=== PATIENT | male | born 1970 | race Caucasian/White ===

== ENCOUNTER 2019-12-10 07:14 | Day surgery (SDC) | payer BC ==
[~2019-12-10 07:14] MED LIST: Lactated Ringers 1,000 ML IV SCH; cefOXitin 2 GM in Premix Bag 1 BAG IV ONE
--- NOTE | 2019-12-10 07:45 | PCM.PREANE ---
Preanesthetic Assessment - Anesthesia/Transfusion/Family Hx Anesthesia History: Prior Anesthesia Without Reaction Family History of Anesthesia Reaction: No Transfusion History: No Prior Transfusion(s) Intubation History: Unknown - Review of Systems General: No Symptoms Pulmonary: No Symptoms Cardiovascular: No Symptoms Gastrointestinal: No Symptoms, Other (screening colonoscopy) Neurological: No Symptoms Other: Reports: None - Physical Assessment Height: 6 ft 2 in Weight: 140.614 kg ASA Class: 3 Mental Status: Alert & Oriented x3 Airway Class: Mallampati = 2 Dentition: Reports: Normal Dentition Thyro-Mental Finger Breadths: 3 Mouth Opening Finger Breadths: 2 ROM/Head Extension: Full Lungs: Clear to Auscultation, Normal Respiratory Effort Cardiovascular: Regular Rate, Regular Rhythm - Allergies Allergies/Adverse Reactions: Allergies Allergy/AdvReac Type Severity Reaction Status Date / Time No Known Allergies Allergy Verified 12/08/19 09:07 - Blood Blood Available: No - Anesthesia Plan Pre-Op Medication Ordered: None - Acknowledgements Anesthesia Type Planned: MAC Pt an Appropriate Candidate for the Planned Anesthesia: Yes Alternatives and Risks of Anesthesia Discussed w Pt/Guardian: Yes Pt/Guardian Understands and Agrees with Anesthesia Plan: Yes PreAnesthesia Questionnaire HEENT History: Reports: Other (See Below) Other HEENT History: wears glasses, hx fx nose Cardiovascular History: Reports: High Cholesterol Respiratory History: Reports: Asthma, COPD, SOB (he can walk easily 2 blocks or two flights of stairs, uses inhalers twice a week), Other (See Below) Other Respiratory History: childhood asthma, "starting of COPD" Gastrointestinal History: Reports: GERD Genitourinary History: Reports: None Musculoskeletal History: Reports: Fracture, Other (See Below) Other Musculoskeletal History: bulging lumbar discs, hx fx collarbone, arm, wrist and rt ankle Neurological History: Reports: None Psychiatric History: Reports: Anxiety, Depression Endocrine/Metabolic History: Reports: Obesity/BMI 30+ (BMI 39.8) Hematologic History: Reports: None Immunologic History: Reports: None Oncologic (Cancer) History: Reports: None Dermatologic History: Reports: Eczema - Past Surgical History Head Surgeries/Procedures: Reports: None HEENT Surgical History: Reports: Eye Surgery Cardiovascular Surgical History: Reports: None Respiratory Surgical History: Reports: None GI Surgical History: Reports: Appendectomy Male Surgical History: Reports: None Endocrine Surgical History: Reports: None Neurological Surgical History: Reports: None Musculoskeletal Surgical History: Reports: Hip Replacement, Other (See Below) Other Musculoskeletal Surgeries/Procedures:: 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) , surgery for crushed rt ankle, surgery for left hand injury Oncologic Surgical History: Reports: None Dermatological Surgical History: Reports: None - SUBSTANCE USE Smoking Status *Q: Former Smoker (quit 4 years ago) Tobacco Use Within Last Twelve Months: No - HOME MEDS Home Medications: Home Meds Albuterol [Proair HFA] 2 puff INH ASDIRECTED PRN 12/08/19 [History] Escitalopram Oxalate 20 mg PO DAILY 12/08/19 [History] Meloxicam 15 mg PO DAILY 12/08/19 [History] Montelukast Sodium 10 mg PO BEDTIME 12/08/19 [History] Omeprazole 20 mg PO DAILY 12/08/19 [History] Simvastatin 20 mg PO BEDTIME 12/08/19 [History] - CURRENT (IN HOUSE) MEDS Current Meds: Current Medications Lactated Ringer's (Ringers, Lactated) 1,000 mls @ 125 mls/hr IV ASDIRECTED KAREN Discontinued Medications Cefoxitin Sodium 2 gm/ Premix 50 mls @ 100 mls/hr IV ONETIME ONE Stop: 12/10/19 07:29
[2019-12-10] MEDS ORDERED: Propofol 200 MG/20 ML SDV ONE (08:36)
[2019-12-10] MEDS ORDERED: Midazolam 1 MG/ML 2 ML SDV ONE (08:36)
[2019-12-10] MEDS ORDERED: Lidocaine 2% 5 ML SDV ONE (08:37)
--- NOTE | 2019-12-10 09:54 | PCM.OPNOTE ---
- General Post-Op/Procedure Note Date of Surgery/Procedure: 12/10/19 Operative Procedure(s): Colonoscopy with cold sigmoid polypectomy 2 Pre Op Diagnosis: Desire for colorectal cancer screening Post-Op Diagnosis: Mid and distal sigmoid polyps. Sigmoid diverticulosis. Anesthesia Technique: MAC (ASA III) Primary Surgeon: Kota Stanley Condition: Good Free Text/Narrative:: DICTATION [id number] CPT CODE 31700
[2019-12-10] MEDS ORDERED: Lactated Ringers 1,000 ML IV SCH (10:00)
--- NOTE | 2019-12-10 10:11 | PCM.POSTAN ---
POST ANESTHESIA ASSESSMENT - MENTAL STATUS Mental Status: Alert, Oriented - VITAL SIGNS Vital Signs: Last Vital Signs Temp 37.1 C 12/10/19 09:51 Pulse 69 12/10/19 10:02 Resp 18 12/10/19 10:02 BP 107/52 L 12/10/19 10:02 Pulse Ox 93 L 12/10/19 10:02 - RESPIRATORY Respiratory Status: Respiratory Rate WNL, Airway Patent, O2 Saturation Stable - CARDIOVASCULAR CV Status: Pulse Rate WNL, Blood Pressure Stable - GASTROINTESTINAL GI Status: No Symptoms - PAIN Pain Score: 0 - POST OP HYDRATION Hydration Status: Adequate & Stable - OBSERVATIONS Free Text/Narrative:: No anesthesia problems
--- NOTE | 2019-12-10 10:38 | PCM48HPAN ---
Post Anesthesia Note - EVALUATION WITHIN 48HRS OF ANESTHETIC Vital Signs in Normal Range: Yes Patient Participated in Evaluation: Yes Respiratory Function Stable: Yes Airway Patent: Yes Cardiovascular Function Stable: Yes Hydration Status Stable: Yes Pain Control Satisfactory: Yes Nausea and Vomiting Control Satisfactory: Yes Mental Status Recovered: Yes Vital Signs: Last Vital Signs Temp 37.1 C 12/10/19 09:51 Pulse 69 12/10/19 10:02 Resp 18 12/10/19 10:02 BP 107/52 L 12/10/19 10:02 Pulse Ox 93 L 12/10/19 10:02 - COMMENTS/OBSERVATIONS Free Text/Narrative:: No anesthesia problems
--- NOTE | 2019-12-10 18:37 | OR ---
SURGEON: Kota Stanley M.D. DATE OF PROCEDURE: 12/10/2019 OPERATION PERFORMED: Colonoscopy with sigmoid colon polypectomy x2. PRIMARY SURGEON: Kota Stanley M.D. ANESTHESIA: MAC. ASA CLASSIFICATION: III. PREOPERATIVE DIAGNOSIS: Desire for colorectal cancer screening. POSTOPERATIVE DIAGNOSES: 1. Mid and distal sigmoid polyps. 2. Mild sigmoid diverticulosis. DESCRIPTION OF PROCEDURE: The patient was taken to the endoscopy room and positioned on the endoscopy table in the left lateral decubitus position. Time-out was called for appropriate identification of the patient and procedure. Monitored anesthesia care was provided. The colonoscope was inserted into the rectum and advanced with minimal difficulty to the cecum, where the colonoscope was retroflexed to visualize the ascending colon from below. The colonoscope was then straightened and slowly withdrawn. The cecum, ascending colon, hepatic flexure, transverse colon, splenic flexure, and descending colon showed no tumors, polyps, diverticula, or angiodysplastic changes. There was no evidence of inflammatory bowel disease. The sigmoid colon demonstrated a few scattered diverticula. Two small polyps were encountered in the sigmoid colon. One was in the distal sigmoid and the other in the mid sigmoid. These were removed separately with the cold biopsy forceps and sent for separate histologic analysis. The colonoscope was then withdrawn to the rectum and retroflexed to visualize the anal orifice from above. No tumors or polyps were encountered in the distal rectum and there were no acute hemorrhoidal changes. The colonoscope was then straightened, the rectum aspirated, and the colonoscope removed. The patient tolerated the procedure well and was taken to recovery room in stable condition. PARRISH / MANOHAR /[id number]
== END 2019-12-10 11:10 | disposition home or self-care (01) ==
LOC: MW.SDS 07:14
PROVIDERS: ATTEND Surgery
DX: Z12.11 Encounter for screening for malignant neoplasm of colon (principal); K63.5 Polyp of colon; K57.30 Diverticulosis of large intestine without perforation or abscess without bleeding; E78.00 Pure hypercholesterolemia, unspecified; J44.9 Chronic obstructive pulmonary disease, unspecified; K21.9 Gastro-esophageal reflux disease without esophagitis; F41.9 Anxiety disorder, unspecified; E78.5 Hyperlipidemia, unspecified; F32.9 Major depressive disorder, single episode, unspecified; E66.9 Obesity, unspecified; Z68.39 Body mass index [BMI] 39.0-39.9, adult; Z87.891 Personal history of nicotine dependence; Z79.899 Other long term (current) drug therapy
CPT/HCPCS: 45380; J0694; J2001; J2250; J2704; J7120; 00812; 88305

== ENCOUNTER 2021-01-26 10:48 | Observation (INO) | payer BC ==
[2021-01-26] MEDS ORDERED: Sodium Chloride 0.9% 1,000 ML IV ONE (10:55)
[2021-01-26] MEDS ORDERED: Aspirin 81 MG Tab.Chew PO ONE (10:55)
--- NOTE | 2021-01-26 11:01 | EDM.PDOC ---
ED HPI GENERAL MEDICAL PROBLEM - General Chief Complaint: Chest Pain Stated Complaint: CP/SOB Time Seen by Provider: 01/26/21 10:54 Source of Information: Reports: Patient History Limitations: Reports: No Limitations - History of Present Illness INITIAL COMMENTS - FREE TEXT/NARRATIVE: HISTORY AND PHYSICAL: History of present illness: Patient is a 50-year-old male who presents to the emergency room with complaints of chest pain, shortness of breath and left sided chest wall "cramping" since 6 AM this morning. Patient states that rest makes the pain feel improved, physical activity or exertion exacerbates the discomfort. He states he feels dizzy and has had a nonproductive cough. Currently rates his pain at a 4/10. He has been an intermittent smoker over the past 20 years. Father has had multiple MIs in the past, of other causes. States 2 weeks ago he flew from [place] to [place]. No other family members or close contacts have been ill. Patient denies any fever, chills, headache, change in vision, syncope or near syncope. Denies any back pain, abdominal pain, nausea, vomiting, diarrhea, constipation or dysuria. Has not noted any blood in urine or stool. Patient has been eating and drinking appropriately. Review of systems: As per history of present illness and below otherwise all systems reviewed and negative. Past medical history: As per history of present illness and as reviewed below otherwise noncontributory. Surgical history: As per history of present illness and as reviewed below otherwise noncontributory. Social history: See social history for further information Family history: As per history of present illness and as reviewed below otherwise noncontributory. Physical exam: General: Well developed and well nourished 50-year-old male. Alert and orientated x 3. Nontoxic in appearance and in no acute distress. Vital signs are stable and have been reviewed by me. Nursing notes were reviewed. HEENT: Atraumatic, normocephalic, pupils equal and reactive bilaterally, negative for conjunctival pallor or scleral icterus, mucous membranes moist, TMs normal bilaterally, throat clear, neck supple, nontender, trachea midline. No d rooling or trismus noted. No meningeal signs. No hot potato voice noted. Lungs: Clear to auscultation bilaterally. No wheezes, rales, or rhonchi. Chest nontender. Normal work of breathing, no accessory muscles used. Heart: S1S2, regular rate and rhythm without overt murmur, gallops, or rubs. No JVD. No peripheral edema Abdomen: Soft, obese, nontender. Normoactive bowel sounds. Negative for masses or costovertebral tenderness. Skin: Intact, warm, dry. No lesions or rashes noted. Hematologic: No petechiae or purpra. Mucosa appropriate color and normal nail bed color and refill. Extremities: Atraumatic, moves all extremities per self without difficulty or deficits, negative for cords or calf pain. Neurovascular unremarkable. Neuro: Awake, alert, oriented. Cranial nerves II through XII unremarkable. Cerebellum unremarkable. Motor and sensory unremarkable throughout. Exam nonfocal. Psychiatric: Mood and affect are appropriate. Normal thought process. Answering questions appropriately. Notes: *This patient was seen and evaluated during the 2019 SARS-CoV-2 novel coronavirus pandemic period. Community viral transmission is ongoing at time of this encounter and the emergency department is operating under pandemic response procedures. Patient is a 50-year-old male who presents to the emergency room with complaints of chest pain with a cramping sensation to his left rib cage, dizziness and generally feeling unwell since 6 AM this morning. Feels that symptoms are exacerbated with physical activity and alleviated with rest. Patient does have risk factors which include age, weight, elevated cholesterol (not taking his prescribed medication), family history, and +20 year smoker. We will do a full cardiac work-up, provide aspirin and nitro. Patient did not have any relief with the nitroglycerin. Initial lab work is unremarkable. Chest x-ray is unremarkable. Chest pain has resolved after the morphine and fluids, but continues to feel dizzy and generally unwell. Will repeat a second troponin. Second troponin is unremarkable. I have talked with the patient about today's findings, in addition to providing specific details for plan of care. Reassessment at the time of disposition demonstrates that the patient is in no acute distress. He states he continues to feel dizzy, there were some changes in his orthostatics although that could be due to the medications he received. We will keep him for further care and evaluation for the chest pain. Dr. Guerrero is agreeable to plan of care and will keep patient on telemetry for further management Diagnostics: CBC, CMP, EKG, troponin, chest x-ray, COVID-19/influenza Therapeutics: NS at 125 mL/HR, aspirin, nitro x 3 Impression: Chest pain Dizziness Plan: Observation admission [facility] with telemetry Definitive disposition and diagnosis as appropriate pending reevaluation and review of above. Onset: Today Onset Date: 01/26/21 Onset Time: 06:00 Duration: Hour(s): Location: Reports: Chest Left Chest Pain Score (Numeric/FACES): 4 - Related Data Allergies Allergy/AdvReac Type Severity Reaction Status Date / Time No Known Allergies Allergy Verified 01/26/21 11:02 Home Meds: Home Meds Albuterol [Proair HFA] 2 puff INH ASDIRECTED PRN 12/08/19 [History] Escitalopram Oxalate 20 mg PO DAILY 12/08/19 [History] Meloxicam 15 mg PO DAILY 12/08/19 [History] Montelukast Sodium 10 mg PO BEDTIME 12/08/19 [History] Omeprazole 20 mg PO DAILY 12/08/19 [History] Simvastatin 20 mg PO BEDTIME 12/08/19 [History] Past Medical History HEENT History: Reports: Other (See Below) Other HEENT History: wears glasses, hx fx nose Cardiovascular History: Reports: High Cholesterol Respiratory History: Reports: Asthma, COPD, SOB (he can walk easily 2 blocks or two flights of stairs, uses inhalers twice a week), Other (See Below) Other Respiratory History: childhood asthma, "starting of COPD" Gastrointestinal History: Reports: GERD Genitourinary History: Reports: None Musculoskeletal History: Reports: Fracture, Other (See Below) Other Musculoskeletal History: bulging lumbar discs, hx fx collarbone, arm, wrist and rt ankle Neurological History: Reports: None Psychiatric History: Reports: Anxiety, Depression Endocrine/Metabolic History: Reports: Obesity/BMI 30+ (BMI 39.8) Hematologic History: Reports: None Immunologic History: Reports: None Oncologic (Cancer) History: Reports: None Dermatologic History: Reports: Eczema - Past Surgical History Head Surgeries/Procedures: Reports: None HEENT Surgical History: Reports: Eye Surgery Cardiovascular Surgical History: Reports: None Respiratory Surgical History: Reports: None GI Surgical History: Reports: Appendectomy Male Surgical History: Reports: None Endocrine Surgical History: Reports: None Neurological Surgical History: Reports: None Musculoskeletal Surgical History: Reports: Hip Replacement, Other (See Below) Other Musculoskeletal Surgeries/Procedures:: 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 ED EXAM, GENERAL - Physical Exam Exam: See Below (See dictation) Course - Vital Signs Last Recorded V/S: Last Vital Signs Temp 98 F 01/26/21 11:03 Pulse 81 01/26/21 13:22 Resp 20 01/26/21 11:03 BP 125/56 L 01/26/21 13:22 Pulse Ox 93 L 01/26/21 13:22 Orthostatic Blood Pressure [ 115/64 Standing] Orthostatic Blood Pressure [ 123/78 Sitting] Orthostatic Blood Pressure [ 144/75 Supine] - Orders/Labs/Meds Orders: Active Orders 24 hr Category Date Time Status Admission Status [Patient Status] [ADT] Stat ADT 01/26/21 14:11 Active EKG Documentation Completion [RC] STAT Care 01/26/21 10:55 Active Orthostatic Vital Signs [RC] ASDIRECTED Care 01/26/21 13:08 Active Sodium Chloride 0.9% [Normal Saline] 1,000 ml Med 01/26/21 10:55 Active IV STAT Medication Orders Sodium Chloride (Normal Saline) 1,000 mls @ 125 mls/hr IV STAT ONE Stop: 01/26/21 18:54 Last Admin: 01/26/21 11:09 Dose: 125 mls/hr Documented by: [id number] Labs: Laboratory Tests 01/26/21 01/26/21 01/26/21 Range/Units 11:01 11:01 11:01 WBC 6.64 (4.0-11.0) K/uL RBC 5.25 (4.50-5.90) M/uL Hgb 16.4 (13.0-17.0) g/dL Hct 48.7 (38.0-50.0) % MCV 92.8 (80.0-98.0) fL MCH 31.2 (27.0-32.0) pg MCHC 33.7 (31.0-37.0) g/dL RDW Std Deviation 49.3 (28.0-62.0) fl RDW Coeff of Benita 15 (11.0-15.0) % Plt Count 322 (150-400) K/uL MPV 10.30 (7.40-12.00) fL Neut % (Auto) 49.9 (48.0-80.0) % Lymph % (Auto) 35.2 (16.0-40.0) % Billings % (Auto) 10.4 (0.0-15.0) % Eos % (Auto) 3.9 (0.0-7.0) % Baso % (Auto) 0.6 (0.0-1.5) % Neut # (Auto) 3.3 (1.4-5.7) K/uL Lymph # (Auto) 2.3 (0.6-2.4) K/uL Billings # (Auto) 0.7 (0.0-0.8) K/uL Eos # (Auto) 0.3 (0.0-0.7) K/uL Baso # (Auto) 0.0 (0.0-0.1) K/uL Nucleated RBC % 0.0 /100WBC Nucleated RBCs # 0 K/uL D-Dimer, Quantitative 0.43 (0.0-0.50) mg/L FEU Sodium 138 (136-148) mmol/L Potassium 4.2 (3.5-5.1) mmol/L Chloride 101 (98-107) mmol/L Carbon Dioxide 27.7 (21.0-32.0) mmol/L BUN 9 (7.0-18.0) mg/dL Creatinine 1.3 (0.8-1.3) mg/dL Est Cr Clr Drug Dosing 78.16 mL/min Estimated GFR (MDRD) 58.2 ml/min Glucose 112 H (74-106) mg/dL Calcium 9.2 (8.5-10.1) mg/dL Total Bilirubin 0.6 (0.2-1.0) mg/dL AST 64 H (15-37) IU/L ALT 109 H (14-63) IU/L Alkaline Phosphatase 94 (46-116) U/L Troponin I < 0.050 (0.000-0.056) ng/mL Total Protein 7.8 (6.4-8.2) g/dL Albumin 3.8 (3.4-5.0) g/dL Globulin 4.0 (2.6-4.0) g/dL Albumin/Globulin Ratio 0.9 (0.9-1.6) TSH 3rd Generation (0.36-3.74) uIU/mL Influenza Type A RNA (NEGATIVE) Influenza Type B RNA (NEGATIVE) SARS-CoV-2 RNA (VI) (NEGATIVE) 01/26/21 01/26/21 01/26/21 Range/Units 11:01 12:55 14:13 WBC (4.0-11.0) K/uL RBC (4.50-5.90) M/uL Hgb (13.0-17.0) g/dL Hct (38.0-50.0) % MCV (80.0-98.0) fL MCH (27.0-32.0) pg MCHC (31.0-37.0) g/dL RDW Std Deviation (28.0-62.0) fl RDW Coeff of Benita (11.0-15.0) % Plt Count (150-400) K/uL MPV (7.40-12.00) fL Neut % (Auto) (48.0-80.0) % Lymph % (Auto) (16.0-40.0) % Billings % (Auto) (0.0-15.0) % Eos % (Auto) (0.0-7.0) % Baso % (Auto) (0.0-1.5) % Neut # (Auto) (1.4-5.7) K/uL Lymph # (Auto) (0.6-2.4) K/uL Billings # (Auto) (0.0-0.8) K/uL Eos # (Auto) (0.0-0.7) K/uL Baso # (Auto) (0.0-0.1) K/uL Nucleated RBC % /100WBC Nucleated RBCs # K/uL D-Dimer, Quantitative (0.0-0.50) mg/L FEU Sodium (136-148) mmol/L Potassium (3.5-5.1) mmol/L Chloride (98-107) mmol/L Carbon Dioxide (21.0-32.0) mmol/L BUN (7.0-18.0) mg/dL Creatinine (0.8-1.3) mg/dL Est Cr Clr Drug Dosing mL/min Estimated GFR (MDRD) ml/min Glucose (74-106) mg/dL Calcium (8.5-10.1) mg/dL Total Bilirubin (0.2-1.0) mg/dL AST (15-37) IU/L ALT (14-63) IU/L Alkaline Phosphatase (46-116) U/L Troponin I < 0.050 (0.000-0.056) ng/mL Total Protein (6.4-8.2) g/dL Albumin (3.4-5.0) g/dL Globulin (2.6-4.0) g/dL Albumin/Globulin Ratio (0.9-1.6) TSH 3rd Generation 1.30 (0.36-3.74) uIU/mL Influenza Type A RNA NEGATIVE (NEGATIVE) Influenza Type B RNA NEGATIVE (NEGATIVE) SARS-CoV-2 RNA (VI) NEGATIVE (NEGATIVE) Meds: Medications Generic Name Dose Route Start Last Admin Trade Name Keshia PRN Reason Stop Dose Admin Sodium Chloride 1,000 mls @ 125 mls/hr 01/26/21 10:55 01/26/21 11:09 Normal Saline IV 01/26/21 18:54 125 mls/hr STAT ONE Administration Discontinued Medications Generic Name Dose Route Start Last Admin Trade Name Keshia PRN Reason Stop Dose Admin Aspirin 324 mg 01/26/21 10:55 01/26/21 11:09 Aspirin 81 Mg Tab.Chew PO 01/26/21 10:56 324 mg ONETIME ONE Administration Morphine Sulfate 4 mg 01/26/21 11:37 01/26/21 12:02 Morphine 4 Mg/Ml Syringe IVPUSH 01/26/21 11:38 4 mg ONETIME ONE Administration Nitroglycerin 0.4 mg 01/26/21 10:55 01/26/21 11:32 Nitroglycerin 0.4 Mg Tab.Sl SL 0.4 mg Q5M PRN Administration Chest Pain Ondansetron HCl 4 mg 01/26/21 11:37 01/26/21 12:02 Ondansetron 4 Mg/2 Ml Sdv IVPUSH 01/26/21 11:38 4 mg ONETIME ONE Administration Departure - Departure Time of Disposition: 14:58 Disposition: Refer to Observation Clinical Impression: Chest pain, rule out acute myocardial infarction, Dizziness Referrals: PCP,Unknown [Ordering Only Provider] - Forms: ED Department Discharge Sepsis Event Note (ED) - Focused Exam Vital Signs: Vital Signs Temp Pulse Resp BP BP Pulse Ox 01/26/21 13:22 81 125/56 L 93 L 01/26/21 12:52 75 119/54 L 93 L 01/26/21 11:53 91 115/64 91 L 01/26/21 11:32 140/77 01/26/21 11:21 160/70 H 01/26/21 11:10 168/78 H 01/26/21 11:03 98 F 83 20 168/70 H 94 L - My Orders Last 24 Hours: My Active Orders 01/26/21 10:55 EKG Documentation Completion [RC] STAT Sodium Chloride 0.9% [Normal Saline] 1,000 ml IV STAT 01/26/21 13:08 Orthostatic Vital Signs [RC] ASDIRECTED 01/26/21 14:11 Admission Status [Patient Status] [ADT] Stat - Assessment/Plan Last 24 Hours: My Active Orders 01/26/21 10:55 EKG Documentation Completion [RC] STAT Sodium Chloride 0.9% [Normal Saline] 1,000 ml IV STAT 01/26/21 13:08 Orthostatic Vital Signs [RC] ASDIRECTED 01/26/21 14:11 Admission Status [Patient Status] [ADT] Stat
--- NOTE | 2021-01-26 11:08 | PCM.EKG ---
#1 Interpretation EKG Date: 01/26/21 Time: 10:52 Rhythm: NSR Rate (Beats/Min): 79 ST-T: Normal
[2021-01-26] MEDS: Nitroglycerin 0.4 MG Tab.SL SL PRN ×3 (11:10→11:32)
[2021-01-26] MEDS ORDERED: Ondansetron 4 MG/2 ML SDV IVPUSH ONE (11:37)
[2021-01-26] MEDS ORDERED: Morphine 4 MG/ML Syringe IVPUSH ONE (11:37)
[2021-01-26 11:41] LABS: BLOOD UREA NITROGEN,BUN 9 mg/dL (7.0-18.0); CARBON DIOXIDE,CO2 27.7 mmol/L (21.0-32.0); CHLORIDE,CL 101 mmol/L (98-107); GLUCOSE RANDOM 112 mg/dL (74-106); POTASSIUM,K 4.2 mmol/L (3.5-5.1); SODIUM,NA 138 mmol/L (136-148)
--- NOTE | 2021-01-26 12:51 | CR ---
INDICATION: Chest pain TECHNIQUE: Chest 1 view COMPARISON: None FINDINGS: Cardiovascular and mediastinum: Heart size and vasculature are normal in caliber and appearance. Lungs and pleural spaces: Lungs are clear. No sign of infiltrate or mass. No sign of pleural effusion. No pneumothorax. Bones and soft tissues: No significant findings. IMPRESSION: No acute or significant findings. Dictated by Shaggy Howell MD @ 01/26/2021 12:49:[address] Shaggy Howell @ Jan 26 2021 12:49PM
[2021-01-26 13:36] LABS: CORONAVIRUS COVID-19 NAA NEGATIVE (NEGATIVE); INFLUENZA A NAA NEGATIVE (NEGATIVE); INFLUENZA B NAA NEGATIVE (NEGATIVE)
--- NOTE | 2021-01-26 15:35 | PCM.HP.2 ---
H&P History of Present Illness - General Date of Service: 01/26/21 Admit Problem/Dx: Admission Diagnosis/Problem Admission Diagnosis/Problem Chest pain Source of Information: Patient History Limitations: Reports: No Limitations - History of Present Illness Initial Comments - Free Text/Narative: This 50-year-old male with past medical history of hyperlipidemia, obesity, [employer] account executive use and COPD presented to the ER with complaints of left-sided chest pain, palpitations and dizziness that started this morning when he woke up. He reports that for many months now he has been feeling very fatigued he had chest pain a few months ago admitted and did not seek help. He reports that today he is feeling much like he did previously and his work urged him to be evaluated. He reports that he woke up and had a left-sided rib cage pain that radiated some down his back. He reports some nausea dizziness habitation at the same time. Symptoms were relieved with morphine. Nitro did not seem to help pain on arrival to the ER. He reports that otherwise he has been feeling okay just run down. He reports that he is not sleeping well at night waking up very frequently and does report significant amount of snoring at night. He denies any overt shortness of breath no wheezing or productive cough. He denies any fevers and chills. Denies any abdominal pain black bloody bowel movements diarrhea or urinary troubles. He reports that he does smoke 4 to 5 cigarettes nightly along with doing approximately 1 tin of chewing tobacco daily. Reports binge drinking on the weekends with possible intermittent drinking during week as well. Denies any overt withdrawal symptoms when he stops drinking. He denies any recreational drug use. He does report significant family history of heart disease including his father and " every male in my family has heart problems". He reports his father started with heart attack and needing stents around the age of 43 reports he has had a full quadruple bypass. He also reports many males in his family have heart disease starting in their 40s. Also reports diabetes in his family but not known for him. In ER, lab work fairly benign mild elevated glucose at 112. A1c noted to be 6.0. Mild elevation in AST ALT 64 and 109 respectively troponin negative x2. TSH 1.30. Covid swab and influenza swabs negative. D-dimer 0.43. Chest x-ray reveals no acute cardiopulmonary process. Heart size and vasculature appear normal. EKG normal sinus rhythm with no ST or T wave changes and no ischemic changes noted. Patient was treated with aspirin nitro and morphine in the ER morphine helped pain the most. He had no relief with nitro. Blood pressure on arrival elevated at 168/70 heart rate 83 oxygen 94 on room air. Orthostatic vital signs were checked after nitroglycerin was given there was mild decrease in standing blood pressure from 144/75 supine to sitting 123/78 and standing 115/64. He was given 1 L normal saline in the ER. Due to patient's chest pain and high risk patient will be admitted observation for chest pain rule out ACS. PCP Dr. Najera Left Chest Pain Score (Numeric/FACES): 4 - Related Data Allergies/Adverse Reactions: Allergies Allergy/AdvReac Type Severity Reaction Status Date / Time No Known Allergies Allergy Verified 01/26/21 11:02 Home Medications: Home Meds Albuterol [Proair HFA] 2 puff INH ASDIRECTED PRN 12/08/19 [History] Escitalopram Oxalate 20 mg PO DAILY 12/08/19 [History] Meloxicam 15 mg PO DAILY 12/08/19 [History] Montelukast Sodium 10 mg PO BEDTIME 12/08/19 [History] Omeprazole 20 mg PO DAILY 12/08/19 [History] Simvastatin 20 mg PO BEDTIME 12/08/19 [History] Past Medical History HEENT History: Reports: Other (See Below) Other HEENT History: wears glasses, hx fx nose Cardiovascular History: Reports: High Cholesterol. Denies: Afib, Blood Clots/VTE/DVT, CAD, [place], Stents Respiratory History: Reports: Asthma, COPD, SOB, Other (See Below) Other Respiratory History: childhood asthma, "starting of COPD" Gastrointestinal History: Reports: GERD Genitourinary History: Reports: None Musculoskeletal History: Reports: Fracture, Other (See Below) Other Musculoskeletal History: bulging lumbar discs, hx fx collarbone, arm, wrist and rt ankle Neurological History: Reports: None Psychiatric History: Reports: Anxiety, Depression Endocrine/Metabolic History: Reports: Obesity/BMI 30+ Hematologic History: Reports: None Immunologic History: Reports: None Oncologic (Cancer) History: Reports: None Dermatologic History: Reports: Eczema - Infectious Disease History Infectious Disease History: Reports: None - Past Surgical History Head Surgeries/Procedures: Reports: None HEENT Surgical History: Reports: Eye Surgery Cardiovascular Surgical History: Reports: None Respiratory Surgical History: Reports: None GI Surgical History: Reports: Appendectomy Male Surgical History: Reports: None Endocrine Surgical History: Reports: None Neurological Surgical History: Reports: None Musculoskeletal Surgical History: Reports: Hip Replacement, Other (See Below) Other Musculoskeletal Surgeries/Procedures:: 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) , surgery for crushed rt ankle, surgery for left hand injury Oncologic Surgical History: Reports: None Dermatological Surgical History: Reports: None Social & Family History - Tobacco Use Tobacco Use Status *Q: Current Every Day Tobacco User Tobacco Use Within Last Twelve Months: Cigarettes, Smokeless Tobacco Years of Tobacco use: 25 Packs/Tins Daily: 0.3 Smoking Cessation Information Provided To Patient: Yes - Caffeine Use Caffeine Use: Reports: Energy Drinks - Alcohol Use Alcohol Use History: Yes Alcohol Use Frequency: Binges, Daily - Recreational Drug Use Recreational Drug Use: No - Living Situation & Occupation Occupation: Employed H&P Review of Systems - Review of Systems: Review Of Systems: See Below General: Reports: Malaise, Fatigue. Denies: Fever, Chills HEENT: Reports: Vertigo (Episode today with chest pain). Denies: Headaches, Sinus Congestion, Sore Throat Pulmonary: Reports: Shortness of Breath (On exertion which is at baseline). Denies: Cough, Sputum Cardiovascular: Reports: Chest Pain (Left lateral chest), Palpitations, Dyspnea on Exertion (Baseline). Denies: Lightheadedness, Syncope Gastrointestinal: Reports: Nausea (Chest pain and palpitations). Denies: Abdominal Pain, Black Stool, Bloody Stool, Vomiting Genitourinary: Reports: No Symptoms. Denies: Dysuria, Frequency, Burning Musculoskeletal: Reports: No Symptoms Skin: Reports: No Symptoms Psychiatric: Reports: No Symptoms Neurological: Reports: No Symptoms Hematologic/Lymphatic: Reports: No Symptoms Immunologic: Reports: No Symptoms Exam - Exam Exam: See Below - Vital Signs Vital Signs: Last Vital Signs Temp 98 F 01/26/21 11:03 Pulse 81 01/26/21 13:22 Resp 20 01/26/21 11:03 BP 125/56 L 01/26/21 13:22 Pulse Ox 93 L 01/26/21 13:22 Orthostatic Blood Pressure [ 115/64 Standing] Orthostatic Blood Pressure [ 123/78 Sitting] Orthostatic Blood Pressure [ 144/75 Supine] Weight: 140.614 kg - Exam General: Alert, Oriented, Cooperative HEENT: Conjunctiva Clear, Mucosa Moist & [place], Posterior Pharynx Clear Lungs: Clear to Auscultation, Normal Respiratory Effort Cardiovascular: Regular Rate, Regular Rhythm, Normal S1, Normal S2. No: Systolic Murmur GI/Abdominal Exam: Normal Bowel Sounds, Soft, Non-Tender, Other (Obese abdomen) Extremities: Normal Inspection, Normal Range of Motion, Non-Tender, No Pedal Edema Skin: Warm, Dry, Intact Neuro Extensive - Mental Status: Alert, Oriented x3 Neuro Extensive - Motor, Sensory, Reflexes: CN II-XII Intact Psychiatric: Alert, Normal Affect, Normal Mood - Patient Data Lab Results Last 24 hrs: Laboratory Results - last 24 hr 01/26/21 01/26/21 01/26/21 Range/Units 11:01 11:01 11:01 WBC 6.64 (4.0-11.0) K/uL RBC 5.25 (4.50-5.90) M/uL Hgb 16.4 (13.0-17.0) g/dL Hct 48.7 (38.0-50.0) % MCV 92.8 (80.0-98.0) fL MCH 31.2 (27.0-32.0) pg MCHC 33.7 (31.0-37.0) g/dL RDW Std Deviation 49.3 (28.0-62.0) fl RDW Coeff of Benita 15 (11.0-15.0) % Plt Count 322 (150-400) K/uL MPV 10.30 (7.40-12.00) fL Neut % (Auto) 49.9 (48.0-80.0) % Lymph % (Auto) 35.2 (16.0-40.0) % Dewey % (Auto) 10.4 (0.0-15.0) % Eos % (Auto) 3.9 (0.0-7.0) % Baso % (Auto) 0.6 (0.0-1.5) % Neut # (Auto) 3.3 (1.4-5.7) K/uL Lymph # (Auto) 2.3 (0.6-2.4) K/uL Dewey # (Auto) 0.7 (0.0-0.8) K/uL Eos # (Auto) 0.3 (0.0-0.7) K/uL Baso # (Auto) 0.0 (0.0-0.1) K/uL Nucleated RBC % 0.0 /100WBC Nucleated RBCs # 0 K/uL D-Dimer, Quantitative 0.43 (0.0-0.50) mg/L FEU Sodium 138 (136-148) mmol/L Potassium 4.2 (3.5-5.1) mmol/L Chloride 101 (98-107) mmol/L Carbon Dioxide 27.7 (21.0-32.0) mmol/L BUN 9 (7.0-18.0) mg/dL Creatinine 1.3 (0.8-1.3) mg/dL Est Cr Clr Drug Dosing 78.16 mL/min Estimated GFR (MDRD) 58.2 ml/min Glucose 112 H (74-106) mg/dL Calcium 9.2 (8.5-10.1) mg/dL Total Bilirubin 0.6 (0.2-1.0) mg/dL AST 64 H (15-37) IU/L ALT 109 H (14-63) IU/L Alkaline Phosphatase 94 (46-116) U/L Troponin I < 0.050 (0.000-0.056) ng/mL Total Protein 7.8 (6.4-8.2) g/dL Albumin 3.8 (3.4-5.0) g/dL Globulin 4.0 (2.6-4.0) g/dL Albumin/Globulin Ratio 0.9 (0.9-1.6) TSH 3rd Generation (0.36-3.74) uIU/mL Influenza Type A RNA (NEGATIVE) Influenza Type B RNA (NEGATIVE) SARS-CoV-2 RNA (VI) (NEGATIVE) 01/26/21 01/26/21 01/26/21 Range/Units 11:01 12:55 14:13 WBC (4.0-11.0) K/uL RBC (4.50-5.90) M/uL Hgb (13.0-17.0) g/dL Hct (38.0-50.0) % MCV (80.0-98.0) fL MCH (27.0-32.0) pg MCHC (31.0-37.0) g/dL RDW Std Deviation (28.0-62.0) fl RDW Coeff of Benita (11.0-15.0) % Plt Count (150-400) K/uL MPV (7.40-12.00) fL Neut % (Auto) (48.0-80.0) % Lymph % (Auto) (16.0-40.0) % Dewey % (Auto) (0.0-15.0) % Eos % (Auto) (0.0-7.0) % Baso % (Auto) (0.0-1.5) % Neut # (Auto) (1.4-5.7) K/uL Lymph # (Auto) (0.6-2.4) K/uL Dewey # (Auto) (0.0-0.8) K/uL Eos # (Auto) (0.0-0.7) K/uL Baso # (Auto) (0.0-0.1) K/uL Nucleated RBC % /100WBC Nucleated RBCs # K/uL D-Dimer, Quantitative (0.0-0.50) mg/L FEU Sodium (136-148) mmol/L Potassium (3.5-5.1) mmol/L Chloride (98-107) mmol/L Carbon Dioxide (21.0-32.0) mmol/L BUN (7.0-18.0) mg/dL Creatinine (0.8-1.3) mg/dL Est Cr Clr Drug Dosing mL/min Estimated GFR (MDRD) ml/min Glucose (74-106) mg/dL Calcium (8.5-10.1) mg/dL Total Bilirubin (0.2-1.0) mg/dL AST (15-37) IU/L ALT (14-63) IU/L Alkaline Phosphatase (46-116) U/L Troponin I < 0.050 (0.000-0.056) ng/mL Total Protein (6.4-8.2) g/dL Albumin (3.4-5.0) g/dL Globulin (2.6-4.0) g/dL Albumin/Globulin Ratio (0.9-1.6) TSH 3rd Generation 1.30 (0.36-3.74) uIU/mL Influenza Type A RNA NEGATIVE (NEGATIVE) Influenza Type B RNA NEGATIVE (NEGATIVE) SARS-CoV-2 RNA (VI) NEGATIVE (NEGATIVE) Result Diagrams: 01/26/21 11:01 01/26/21 11:01 Sepsis Event Note - Evaluation Sepsis Screening Result: No Definite Risk - Focused Exam Vital Signs: Vital Signs Temp Pulse Resp BP BP Pulse Ox 01/26/21 13:22 81 125/56 L 93 L 01/26/21 12:52 75 119/54 L 93 L 01/26/21 11:53 91 115/64 91 L 01/26/21 11:32 140/77 01/26/21 11:21 160/70 H 01/26/21 11:10 168/78 H 01/26/21 11:03 98 F 83 20 168/70 H 94 L - Problem List (1) Chest pain, rule out acute myocardial infarction SNOMED Code(s): 38456853 ICD Code: R07.9 - CHEST PAIN, UNSPECIFIED Status: Acute Current Visit: Yes (2) Palpitations SNOMED Code(s): 49282461 ICD Code: R00.2 - PALPITATIONS Status: Acute Current Visit: Yes (3) Dizziness SNOMED Code(s): 619388632, 072666581 ICD Code: R42 - DIZZINESS AND GIDDINESS Status: Acute Current Visit: Yes (4) Fatigue SNOMED Code(s): 47771533 ICD Code: R53.83 - OTHER FATIGUE Status: Acute Current Visit: Yes (5) Elevated blood pressure reading SNOMED Code(s): 89895105 ICD Code: R03.0 - ELEVATED BLOOD-PRESSURE READING, W/O DIAGNOSIS OF HTN Status: Acute Current Visit: Yes (6) Hyperlipidemia SNOMED Code(s): 89969983 ICD Code: E78.5 - HYPERLIPIDEMIA, UNSPECIFIED Status: Chronic Current Visit: Yes (7) Tobacco use SNOMED Code(s): 524970735 ICD Code: Z72.0 - TOBACCO USE Status: Acute Current Visit: Yes (8) Obesity SNOMED Code(s): 450067214, 660560557 ICD Code: E66.9 - OBESITY, UNSPECIFIED Status: Chronic Current Visit: Yes Problem List Initiated/Reviewed/Updated: Yes Orders Last 24hrs: Active Orders 24 hr Category Date Time Status Admission Status [Patient Status] [ADT] Stat ADT 01/26/21 14:11 Active EKG Documentation Completion [RC] STAT Care 01/26/21 10:55 Active Orthostatic Vital Signs [RC] ASDIRECTED Care 01/26/21 13:08 Active Telemetry Monitoring [Cardiac Monitoring] [RC] . Care 01/26/21 14:30 Active DIRECTED Sodium Chloride 0.9% [Normal Saline] 1,000 ml Med 01/26/21 10:55 Active IV STAT Medication Orders Sodium Chloride (Normal Saline) 1,000 mls @ 125 mls/hr IV STAT ONE Stop: 01/26/21 18:54 Last Admin: 01/26/21 11:09 Dose: 125 mls/hr Documented by: [id number] Assessment/Plan Comment:: This 50-year-old male admitted with chest pain rule out ACS 1. Chest pain rule out ACS -Troponins x2 negative in the ER will repeat third 3 hours her last 1. -Monitor on telemetry -Obtain lipid panel in a.m. -Counseled on tobacco use and modification of lifestyle along with weight loss -Patient brought up concerns about significant snoring and poor sleeping will arrange outpatient sleep study -Palpitations sensed at home will order Zio patch upon discharge for 14 days -Start aspirin daily -Continue simvastatin 20 mg daily, change to appropriate dosing when lipid panel available -Obtain echo -Arrange outpatient stress test VTE prophylaxis: SCDs and ambulation CODE STATUS: full code Dispo: Likely in a.m.
[2021-01-26] MEDS ORDERED: Ondansetron 4 MG/2 ML SDV IVPUSH PRN (15:54)
[2021-01-26] MEDS ORDERED: Acetaminophen 325 MG Tab PO PRN (15:54)
[2021-01-26] MEDS ORDERED: Sodium Chloride 0.9% 2.5 ML Syringe FLUSH PRN (15:54)
[2021-01-26] MEDS ORDERED: Docusate Sodium 100 MG Cap PO PRN (15:54)
[2021-01-26] MEDS ORDERED: Albuterol/Ipratropium 3.0-0.5 MG/3 ML Neb Soln NEB PRN (16:00)
[2021-01-26] MEDS ORDERED: Nitroglycerin 0.4 MG Tab.SL SL PRN (16:15)
[2021-01-26] MEDS ORDERED: Morphine 2 MG/ML SYRINGE IVPUSH PRN (16:18)
[2021-01-26] MEDS ORDERED: Simvastatin 20 MG Tab PO SCH (21:00)
[2021-01-27] MEDS ORDERED: Aspirin 81 MG Tab.Chew PO SCH (09:00)
--- NOTE | 2021-01-27 12:24 | PCM.DCSUM1 ---
Discharge Summary - Hospital Course Free Text/Narrative:: This 50-year-old male with past medical history of hyperlipidemia, obesity, tobacco use and COPD presented to the ER with complaints of left-sided chest pain, palpitations and dizziness that started this morning when he woke up. He reports that for many months now he has been feeling very fatigued he had chest pain a few months ago admitted and did not seek help. He reports that today he is feeling much like he did previously and his work urged him to be evaluated. He reports that he woke up and had a left-sided rib cage pain that radiated some down his back. He reports some nausea dizziness habitation at the same time. Symptoms were relieved with morphine. Nitro did not seem to help pain on arrival to the ER. He reports that otherwise he has been feeling okay just run down. He reports that he is not sleeping well at night waking up very f requently and does report significant amount of snoring at night. He denies any overt shortness of breath no wheezing or productive cough. He denies any fevers and chills. Denies any abdominal pain black bloody bowel movements diarrhea or urinary troubles. He reports that he does smoke 4 to 5 cigarettes nightly along with doing approximately 1 tin of chewing tobacco daily. Reports binge drinking on the weekends with possible intermittent drinking during week as well. Denies any overt withdrawal symptoms when he stops drinking. He denies any recreational drug use. He does report significant family history of heart disease including his father and " every male in my family has heart problems". He reports his father started with heart attack and needing stents around the age of 43 reports he has had a full quadruple bypass. He also reports many males in his family have heart disease starting in their 40s. Also reports diabetes in his family but not known for him. Patient states that he had a stress test couple of years back which was normal so he did not think much of his chest pain until now. In ER, lab work fairly benign mild elevated glucose at 112. A1c noted to be 6 .0. Mild elevation in AST ALT 64 and 109 respectively troponin negative x2. TSH 1.30. Covid swab and influenza swabs negative. D-dimer 0.43. Chest x-ray reveals no acute cardiopulmonary process. Heart size and vasculature appear normal. EKG normal sinus rhythm with no ST or T wave changes and no ischemic changes noted. Patient was treated with aspirin nitro and morphine in the ER morphine helped pain the most. He had no relief with nitro. Blood pressure on arrival elevated at 168/70 heart rate 83 oxygen 94 on room air. Orthostatic vital signs were checked after nitroglycerin was given there was mild decrease in standing blood pressure from 144/75 supine to sitting 123/78 and standing 115/64. He was given 1 L normal saline in the ER. Due to patient's chest pain and high risk patient will be admitted observation for chest pain rule out ACS. Patient's troponins were trended, all troponins were negative. Chest pain resolved after patient received nitroglycerin in the ER. 2D echo was obtained, the results of which are still pending. Patient's basic lab work including lipids, glycated hemoglobin, TSH was checked which were mostly unremarkable. Patient has been noncompliant to his medications, states that he has run out of his meds by now. Patient was thoroughly counseled about importance of being compliant with medications as well as was counseled about lifestyle changes to lose some weight. Patient also complained of being more sleepy and tired throughout the day, due to suspected MILAD patient was referred for sleep study on outpatient basis. Patient was also referred for outpatient stress test and follow-up with engineer systems upon discharge. Patient was recommended Zio patch upon discharge with a follow-up with his primary care. Patient's home meds were renewed as well. Patient was hemodynamically stable for discharge. Patient was instructed to come back to ER in case his chest pain or shortness of breath comes back or gets worse. Patient expressed understanding and was discharged home with self-care. Which were mostly unremarkable Diagnosis: Stroke: No - Discharge Data Discharge Date: 01/27/21 Discharge Disposition: Home, Self-Care 01 Condition: Stable - Referral to Home Health Primary Care Physician: Joe Najera MD - Patient Instructions Diet: Heart Healthy Diet Activity: As Tolerated Driving: May Drive Today Showering/Bathing: May Shower Notify Provider of: Fever, Increased Pain, Swelling and Redness, Nausea and/or Vomiting - Discharge Plan *PRESCRIPTION DRUG MONITORING PROGRAM REVIEWED*: No *COPY OF PRESCRIPTION DRUG MONITORING REPORT IN PATIENT DONTAE: No Prescriptions/Med Rec: Albuterol Sulfate [Albuterol Sulfate Hfa] 1 puff IH Q6H PRN #1 hfa.aer.ad PRN Reason: Shortness Of Breath Aspirin 81 mg PO DAILY #30 tab.chew Docusate Sodium [Colace] 100 mg PO BID PRN #30 cap PRN Reason: Constipation Omeprazole 20 mg PO ACBREAKFAST #30 cap.sr Simvastatin 20 mg PO BEDTIME #30 tab Montelukast [Singulair] 10 mg PO DAILY #30 tab Home Medications: Home Meds Albuterol [Proair HFA] 2 puff INH ASDIRECTED PRN 12/08/19 [History] Montelukast Sodium 10 mg PO BEDTIME 12/08/19 [History] Albuterol Sulfate [Albuterol Sulfate Hfa] 1 puff IH Q6H PRN #1 hfa.aer.ad 01/27/21 [Rx] Aspirin 81 mg PO DAILY #30 tab.chew 01/27/21 [Rx] Docusate Sodium [Colace] 100 mg PO BID PRN #30 cap 01/27/21 [Rx] Montelukast [Singulair] 10 mg PO DAILY #30 tab 01/27/21 [Rx] Omeprazole 20 mg PO ACBREAKFAST #30 cap.sr 01/27/21 [Rx] Simvastatin 20 mg PO BEDTIME #30 tab 01/27/21 [Rx] Patient Handouts: Docusate Sodium; Senna tablets or capsules, Montelukast oral tablets, Exercise Stress Test, [id number], Sleep Studies, Simvastatin tablets, Albuterol inhalation solution, Omeprazole capsules (sprinkle caps) - Rx Forms: ED Department Discharge Referrals: Jocelyn Hernandez MD [Physician] - Joe Najera MD [Primary Care Provider] - - Discharge Summary/Plan Comment DC Time >30 min.: No - Patient Data Vitals - Most Recent: Last Vital Signs Temp 37.3 C 01/27/21 12:06 Pulse 62 01/27/21 12:06 Resp 17 01/27/21 12:06 BP 115/53 L 01/27/21 12:06 Pulse Ox 94 L 01/27/21 12:06 Orthostatic Blood Pressure [ 115/64 Standing] Orthostatic Blood Pressure [ 123/78 Sitting] Orthostatic Blood Pressure [ 144/75 Supine] Weight - Most Recent: 139.933 kg I&O - Last 24 hours: Intake & Output 01/26/21 01/27/21 01/27/21 22:59 06:59 14:59 Intake Total 550 Output Total 650 Balance -100 Lab Results - Last 24 hrs: Laboratory Results - last 24 hr 01/26/21 01/26/21 01/26/21 Range/Units 11:01 11:01 12:55 Hemoglobin A1c 6.0 (4.5 - 6.2) % Troponin I (0.000-0.056) ng/mL Triglycerides (0-200) mg/dL Cholesterol (50-200) mg/dL LDL Cholesterol, Calc (60-180) mg/dL VLDL Cholesterol (5-55) mg/dL HDL Cholesterol (40-60) mg/dL Cholesterol/HDL Ratio (3.3-6.0) TSH 3rd Generation 1.30 (0.36-3.74) uIU/mL Influenza Type A RNA NEGATIVE (NEGATIVE) Influenza Type B RNA NEGATIVE (NEGATIVE) SARS-CoV-2 RNA (VI) NEGATIVE (NEGATIVE) 01/26/21 01/26/21 01/27/21 Range/Units 14:13 17:05 08:20 Hemoglobin A1c (4.5 - 6.2) % Troponin I < 0.050 < 0.050 (0.000-0.056) ng/mL Triglycerides 146 (0-200) mg/dL Cholesterol 202 H (50-200) mg/dL LDL Cholesterol, Calc 127 (60-180) mg/dL VLDL Cholesterol 29 (5-55) mg/dL HDL Cholesterol 46 (40-60) mg/dL Cholesterol/HDL Ratio 4.4 (3.3-6.0) TSH 3rd Generation (0.36-3.74) uIU/mL Influenza Type A RNA (NEGATIVE) Influenza Type B RNA (NEGATIVE) SARS-CoV-2 RNA (VI) (NEGATIVE) Med Orders - Current: Current Medications Acetaminophen (Acetaminophen 325 Mg Tab) 650 mg PO Q4H PRN PRN Reason: Pain (Mild 1-3)/fever Albuterol/Ipratropium (Albuterol/Ipratropium 3.0-0.5 Mg/3 Ml Neb Soln) 3 ml NEB Q4HRRT PRN PRN Reason: wheezing/SOB Aspirin (Aspirin 81 Mg Tab.Chew) 81 mg PO DAILY KAREN Last Admin: 01/27/21 10:02 Dose: 81 mg Documented by: Docusate Sodium (Docusate Sodium 100 Mg Cap) 100 mg PO BID PRN PRN Reason: Constipation Morphine Sulfate (Morphine 2 Mg/Ml Syringe) 2 mg IVPUSH Q4H PRN PRN Reason: Pain Nitroglycerin (Nitroglycerin 0.4 Mg Tab.Sl) 0.4 mg SL Q5M PRN PRN Reason: Chest Pain Ondansetron HCl (Ondansetron 4 Mg/2 Ml Sdv) 4 mg IVPUSH Q4H PRN PRN Reason: Nausea Simvastatin (Simvastatin 20 Mg Tab) 20 mg PO BEDTIME KAREN Last Admin: 01/26/21 20:59 Dose: 20 mg Documented by: Sodium Chloride (Sodium Chloride 0.9% 2.5 Ml Syringe) 2.5 ml FLUSH ASDIRECTED PRN PRN Reason: Keep Vein Open Discontinued Medications Aspirin (Aspirin 81 Mg Tab.Chew) 324 mg PO ONETIME ONE Stop: 01/26/21 10:56 Last Admin: 01/26/21 11:09 Dose: 324 mg Documented by: Sodium Chloride (Normal Saline) 1,000 mls @ 125 mls/hr IV STAT ONE Stop: 01/26/21 18:54 Last Admin: 01/26/21 11:09 Dose: 125 mls/hr Documented by: Morphine Sulfate (Morphine 4 Mg/Ml Syringe) 4 mg IVPUSH ONETIME ONE Stop: 01/26/21 11:38 Last Admin: 01/26/21 12:02 Dose: 4 mg Documented by: Nitroglycerin (Nitroglycerin 0.4 Mg Tab.Sl) 0.4 mg SL Q5M PRN PRN Reason: Chest Pain Last Admin: 01/26/21 11:32 Dose: 0.4 mg Documented by: Ondansetron HCl (Ondansetron 4 Mg/2 Ml Sdv) 4 mg IVPUSH ONETIME ONE Stop: 01/26/21 11:38 Last Admin: 01/26/21 12:02 Dose: 4 mg Documented by:
--- NOTE | 2021-01-30 13:31 | ECHO ---
EXAM DATE: 01/26/21 PATIENT'S AGE: 50 The ECHO report has been scanned into [employer] and can be seen in this patient's EMR (Electronic Medical Record) under the REPORTS section. The report has also been scanned into PACS. [facility]
== END 2021-01-27 13:10 | disposition home or self-care (01) ==
LOC: MW.ED 10:48 → MW.MS 14:11
PROVIDERS: ADMIT Student in an Organized Health Care Education/Training Program; ATTEND Student in an Organized Health Care Education/Training Program
DX: R07.9 Chest pain, unspecified (principal); E78.5 Hyperlipidemia, unspecified; E66.9 Obesity, unspecified; J44.9 Chronic obstructive pulmonary disease, unspecified; E78.00 Pure hypercholesterolemia, unspecified; F17.210 Nicotine dependence, cigarettes, uncomplicated; Z90.49 Acquired absence of other specified parts of digestive tract; Z79.899 Other long term (current) drug therapy; Z20.822 Contact with and (suspected) exposure to COVID-19; Z68.39 Body mass index [BMI] 39.0-39.9, adult
CPT/HCPCS: 0240U; 36415; 71045; 80053; 80061; 83036; 84443; 84484; 85025; 85379; 93005; 93306; A9270; J2270; J2405; J7030; 96374; 96375; 99285-25; G0378

== ENCOUNTER 2022-08-25 09:49 | Emergency (ER) | payer BC ==
[2022-08-25 10:41] LABS: CORONAVIRUS COVID-19 NAA NEGATIVE (NEGATIVE); INFLUENZA A NAA NEGATIVE (NEGATIVE); INFLUENZA B NAA NEGATIVE (NEGATIVE); RESPIRATORY SYNCYTIAL VIR NAA NEGATIVE (NEGATIVE)
== END 2022-08-25 11:39 | disposition home or self-care (01) ==
LOC: MW.ED 09:49
DX: J02.9 Acute pharyngitis, unspecified (principal); J45.909 Unspecified asthma, uncomplicated; K21.9 Gastro-esophageal reflux disease without esophagitis; E78.5 Hyperlipidemia, unspecified; E78.00 Pure hypercholesterolemia, unspecified; I10 Essential (primary) hypertension; E66.9 Obesity, unspecified; Z87.891 Personal history of nicotine dependence; Z79.82 Long term (current) use of aspirin; Z79.899 Other long term (current) drug therapy; Z28.310 Unvaccinated for COVID-19; Z68.45 Body mass index [BMI] 70 or greater, adult; Z20.822 Contact with and (suspected) exposure to COVID-19
CPT/HCPCS: 0241U; 71046; 87651; 99283

== ENCOUNTER 2023-12-19 16:26 | Emergency (ER) | payer BC | END 2023-12-19 18:42 | disposition home or self-care (01) | LOC: MW.ED 16:26 | DX: S67.192A Crushing injury of right middle finger, initial encounter (principal); S67.194A Crushing injury of right ring finger, initial encounter; S67.196A Crushing injury of right little finger, initial encounter; I10 Essential (primary) hypertension; E78.00 Pure hypercholesterolemia, unspecified; J44.9 Chronic obstructive pulmonary disease, unspecified; K21.9 Gastro-esophageal reflux disease without esophagitis; F17.210 Nicotine dependence, cigarettes, uncomplicated; J44.1 Chronic obstructive pulmonary disease with (acute) exacerbation; Z75.8 Other problems related to medical facilities and other health care; Z79.51 Long term (current) use of inhaled steroids; Z79.899 Other long term (current) drug therapy; Z86.16 Personal history of COVID-19; W23.0XXA Caught, crushed, jammed, or pinched between moving objects, initial encounter; Y93.89 Activity, other specified; Y99.0 Civilian activity done for income or pay | CPT/HCPCS: 29125; 73130-26-RT; 73130-RT; 99283; 99283-25 ==

== ENCOUNTER 2024-02-09 16:16 | Emergency (ER) | payer BC ==
[2024-02-09 17:26] LABS: BASOPHILS ABSOLUTE AUTO 0.05 K/uL (0.00-0.20); BASOPHILS PERCENT AUTO 0.6 % (0.0-1.0); EOSINOPHILS ABSOLUTE AUTO 0.17 K/uL (0.00-0.45); HEMATOCRIT 46.2 % (42.0-52.0); HEMOGLOBIN 15.9 g/dL (14.0-18.0); IMMATURE GRAN ABSOLUTE AUTO 0.01 K/uL (0.00-0.05); IMMATURE GRAN PERCENT AUTO 0.1 % (0.0-0.4); LYMPHOCYTES ABSOLUTE AUTO 2.26 K/uL (1.00-4.80); LYMPHOCYTES PERCENT AUTO 27.2 % (24.0-44.0); MEAN CORPUSCULAR HEMOGLOBIN 31.4 pg (28.0-32.0); MEAN CORPUSCULAR HGB CONC 34.4 g/dL (32.0-36.0); MEAN CORPUSCULAR VOLUME 91.3 fL (83.0-99.0); MEAN PLATELET VOLUME 10.3 fL (9.4-12.4); MONOCYTES ABSOLUTE AUTO 0.56 K/uL (0.00-0.80); MONOCYTES PERCENT AUTO 6.7 % (0.0-8.0); NEUTROPHILS ABSOLUTE AUTO 5.27 K/uL (1.80-7.70); NEUTROPHILS PERCENT AUTO 63.4 % (41.0-71.0); PLATELET COUNT,PLT 401 K/uL (150-400); RED BLOOD CELL COUNT 5.06 M/uL (4.52-5.90); WHITE BLOOD CELL COUNT,WBC 8.32 K/uL (3.9-11.3)
[2024-02-09 17:56] LABS: A/G RATIO 1.1 (0.9-1.6); BILIRUBIN TOTAL 0.4 mg/dL (0.2-1.0); CARBON DIOXIDE,CO2 25.9 mmol/L (21.0-32.0); CREATININE 1.5 mg/dL (0.8-1.3); EST CRCL DRUG DOSING (CG) 65.46 mL/min; POTASSIUM,K 3.7 mmol/L (3.5-5.1); PROTEIN TOTAL,TP 7.7 g/dL (6.4-8.2)
== END 2024-02-09 18:58 | disposition home or self-care (01) ==
LOC: MW.ED 16:16
DX: R00.2 Palpitations (principal); R07.9 Chest pain, unspecified; I10 Essential (primary) hypertension; E78.00 Pure hypercholesterolemia, unspecified; J44.9 Chronic obstructive pulmonary disease, unspecified; E78.5 Hyperlipidemia, unspecified; K21.9 Gastro-esophageal reflux disease without esophagitis; E66.9 Obesity, unspecified; Z86.16 Personal history of COVID-19; Z79.899 Other long term (current) drug therapy; Z68.34 Body mass index [BMI] 34.0-34.9, adult
CPT/HCPCS: 36415; 71045; 71045-26; 80053; 83735; 84484; 85025; 93005; 93010; 99285

== ENCOUNTER 2024-10-26 11:32 | Emergency (ER) | payer BC ==
[2024-10-26] MEDS: Diphtheria,Pertussis(Acell),Tetanus Vaccine 0.5 ML Syringe IM ONE (12:57)
[2024-10-26] MEDS: Lidocaine 2% 5 ML SDV INJECT ONE (13:38)
[2024-10-26] MEDS: Lidocaine 2% 5 ML SDV ONE (13:39)
== END 2024-10-26 13:41 | disposition home or self-care (01) ==
LOC: MW.ED 11:32
DX: S60.450A Superficial foreign body of right index finger, initial encounter (principal); I10 Essential (primary) hypertension; E78.00 Pure hypercholesterolemia, unspecified; J44.89 Other specified chronic obstructive pulmonary disease; K21.9 Gastro-esophageal reflux disease without esophagitis; F17.210 Nicotine dependence, cigarettes, uncomplicated; Z23 Encounter for immunization; Z79.51 Long term (current) use of inhaled steroids; Z79.899 Other long term (current) drug therapy; W45.8XXA Other foreign body or object entering through skin, initial encounter; Y93.89 Activity, other specified
CPT/HCPCS: 90471; 99283; J2003; 99284